=== PATIENT | female | born 1980 | race African-American/Black ===

== ENCOUNTER 2018-09-20 13:42 | Outpatient (CLI) | payer BC, MEDICAID ==
[2018-09-20 14:46] LABS: BHCG - Serum Negative (NEGATIVE); Pregs Control Background? CLEAR/WHITE (CLR/WHITE); Pregs Control Bar Appear? YES (CONTROL BAR)
[2018-09-20 14:47] LABS: Follow-up Chemistry Comp? YES
--- NOTE | 2018-09-20 15:44 | RAD ---
Hysterosalpingogram HISTORY: Infertility. Previous pregnancies. FINDINGS: After explaining the procedure and answering all questions, the uterine cervix was exposed and preppe d. HSG catheter was carefully placed. Balloon inflated to hold position. Approximately 20 cc Isovue-300 contrast was carefully instilled into the uterine cavity which was enl arged due to prior gestations. There was slight delay in opacification of the fallopian tubes and fimbria. Some delay of spill from each fallopian tube, achieved with persistent gentle pressure. Excess contrast was aspirated and catheter removed. Patient tolerated the procedure well and was disc harged in good condition. Fluoroscopy time 0.8 minutes. IMPRESSION: Some delay in opacification of each fallopian tube and spill of contrast from each fallop quoc tube. This was achieved with steady gentle pressure. Each tube was eventually shown to be patent. Patulous endometrial cavity from prior pregnancies.
== END 2018-09-20 13:43 | disposition home or self-care (01) ==
LOC: RAD 13:42 → EDSTATUS 14:00
DX: N80.0 Endometriosis of uterus (principal)
CPT/HCPCS: 36415; 58340; 74740; 84703